=== PATIENT | female | born 1975 | race Hispanic/Latino ===

== ENCOUNTER 2023-07-20 00:27 | Emergency (ER) | payer OTHER, SELFPAY ==
[~2023-07-20] VITALS: Ht 165.1 cm; Wt 80.3 kg
[2023-07-20] MEDS ORDERED: ONDANSETRON 4MG INJ IVP ONE (01:00)
[2023-07-20] MEDS ORDERED: ACETAMINOPHEN 500 MG TABLET PO ONE (01:00)
[2023-07-20 01:37] LABS: BASOPHILS # (AUTO) 0.02 K/uL (0.00-0.20); BASOPHILS % (AUTO) 0.1 % (0.0-5.0); HEMATOCRIT 29.5 % (36-48); IMMATURE GRANULOCYTE ABSOLUTE 0.05 K/uL (0-1); LYMPHOCYTES # (AUTO) 0.5 K/uL (1.0-4.8); LYMPHOCYTES % (AUTO) 3.8 % (21.0-51.0); MEAN CORPUSCULAR HEMOGLOBIN 23.8 pg (27.0-33.0); MEAN CORPUSCULAR HGB CONC 32.2 g/dL (32.0-36.0); MEAN CORPUSCULAR VOLUME 73.8 fL (79-99); MONOCYTES # (AUTO) 0.5 K/uL (0.1-1.0); MONOCYTES % (AUTO) 3.4 % (3.0-13.0); NEUTROPHILS # (AUTO) 12.7 K/uL (1.8-7.7); NEUTROPHILS % (AUTO) 92.3 % (40.0-77.0); PLATELET COUNT (AUTO) 295 K/uL (130-400); RED CELL DISTRIBUTION WIDTH 14.9 % (11.0-15.5); WHITE BLOOD COUNT (AUTO) 13.7 K/uL (4.8-10.8)
[2023-07-20 01:43] LABS: APPEARANCE,URINE CLEAR (CLEAR); BILIRUBIN,URINE NEGATIVE (NEGATIVE); COLOR,URINE COLORLESS (YELLOW); GLUCOSE, URINE (UA) NEGATIVE (NEGATIVE); KETONES,URINE NEGATIVE (NEGATIVE); LEUKOCYTE ESTERASE ,URINE NEGATIVE Leu/uL (NEGATIVE); NITRATE,URINE NEGATIVE (NEGATIVE); OCCULT BLOOD,URINE NEGATIVE (NEGATIVE); PROTEIN,URINE NEGATIVE (NEGATIVE); UROBILINOGEN,URINE 0.2 mg/dL (0.2-1.0)
[2023-07-20 01:45] LABS: CREATININE 0.8 mg/dL (0.5-1.5); POTASSIUM 3.6 mmol/L (3.5-5.1)
[2023-07-20 01:45] LABS: ADD UA MICROSCOPIC NO; HCG,QUALITATIVE URINE NEGATIVE (NEGATIVE)
[2023-07-20 01:51] LABS: SARS-CoV-2, RNA, NAAT NEGATIVE SARS CoV-2 (NEGATIVE)
[2023-07-20 01:52] LABS: RAPID GROUP A STREP positive (NEGATIVE)
[2023-07-20 01:54] LABS: ALBUMIN 3.9 g/dL (3.5-5.0); BILIRUBIN,TOTAL 0.4 mg/dL (0.2-1.0); TOTAL PROTEIN, SERUM 7.7 g/dL (6.0-8.3)
[2023-07-20 01:57] LABS: INFLUENZA TYPE A Negative For Type A (NEGATIVE); INFLUENZA TYPE B Negative For Type B (NEGATIVE)
[2023-07-20] MEDS ORDERED: FAMOTIDINE 20MG VIAL IV ONE (02:00)
[2023-07-20] MEDS ORDERED: 0.9%NACL 1000ML 1,140 ML IV ONE (02:00)
[2023-07-20 02:08] LABS: WBC MORPHOLOGY CONSISTENT W/DIFF
[2023-07-20] MEDS ORDERED: PENI500T2 PO (02:19)
[2023-07-20] MEDS ORDERED: CEFTRIAXONE 2GM VIAL IVPB ONE (02:30)
[2023-07-20 04:38] VITALS: BP 154/86; PULSE 88; RESP 16; O2SAT 100
== END 2023-07-20 04:40 | disposition home or self-care (01) ==
LOC: EDH 00:27
DX: A08.4 Viral intestinal infection, unspecified (principal); J02.0 Streptococcal pharyngitis; Z20.822 Contact with and (suspected) exposure to COVID-19
CPT/HCPCS: 99284; 96365; 96375; 87635; 96366; 80053; 83690; 85025; 87880; 87804 ×2; 81003; 81025; 36415; C9803; J3490; J7030; J0696; J2405

== ENCOUNTER 2024-08-01 19:23 | Emergency (ER) | payer SELFPAY ==
[~2024-08-01] VITALS: Ht 162.6 cm; Wt 76.2 kg
[~2024-08-01 19:23] MED LIST: PENI500T2 PO
[2024-08-01 21:59] VITALS: BP 132/74; PULSE 61; RESP 20; TEMP 97.2; O2SAT 100
== END 2024-08-01 22:04 | disposition home or self-care (01) ==
LOC: EDH 19:23
DX: R10.2 Pelvic and perineal pain (principal); Z79.899 Other long term (current) drug therapy
CPT/HCPCS: 76856

== ENCOUNTER 2024-09-27 16:05 | Emergency (ER) | payer SELFPAY ==
[~2024-09-27] VITALS: Ht 162.6 cm; Wt 74.4 kg
--- NOTE | 2024-09-27 16:27 | EKG ---
[facility] Test Date: 2024-09-27 Test Time: 16:20:32 Pat Name: KRISTI RIDDLE Department: ED Room: Gender: F Sport Intern: [id number] : 1975 Requested By: ARABELLA STOVALL Order Number: [id number] Reading MD: Lluvia Rizo Measurements Intervals [place] Rate: 51 P: 5 DC: 146 QRS: 2 QRSD: 107 T: -7 QT: 457 QTc: 423 Interpretive Statements Sinus rhythm No previous ECG available for comparison Electronically Signed On 09-28-2024 13:33:08 ILLUMINATING ENGINEER by Lluvia Rizo Please click the below link to view image of tracing.
--- NOTE | 2024-09-27 16:27 | ERN ---
General Chief Complaint: Multiple Complaints Stated Complaint: GENERAL BODY WEAKNESS Time Seen by MD: 16:17 History of Present Illness Initial Comments 49-year-old female who presents for headache and hypertension. Patient reports that she has not been taking any blood pressure medicines recently. She has been getting headaches. She has been taking her blood pressure at home and it is elevated. She has been to other facilities and had full workups done including lab work and CT scans. She reports that she wants medicine to start treating her blood pressure but nobody is prescribed any medication. She reports that she does have scheduled follow up with the primary doctor but not for another month or so. No vision changes. No neck stiffness. No focal neurologic deficits. She also reports that she has been seeing sediment in her urine. No other symptoms related to urinary tract Allergies: Coded Allergies: No Known Allergies (Unverified Allergy, Unknown, 07/20/23) Home Meds Active Scripts Amlodipine Besylate (Amlodipine Besylate) 5 Mg Tablet, 5 MG PO DAILY for 30 Days, #30 TAB Prov:ARABELLA STOVALL DO 09/27/24 Penicillin V Potassium (Penicillin V Potassium) 500 Mg Tablet, 1 TAB PO QID for 10 Days, #40 TAB 0 Refills Prov:ISAAC MCKEON Sr., MD 07/20/23 Past Medical History Past Medical History: No Pertinent History Past Surgical History: None Social History Social History: Lives with family ROS Dictation CONSTITUTIONAL: No chills, no fever, no weakness, no diaphoresis, no malaise. HEAD/FACE: No signs of trauma. EENT: No eye pain, no blurred vision, no tearing, no double vision, no ear pa in, no ear discharge, no nose pain, no nasal congestion, no throat pain, no throat swelling, no mouth pain. RESPIRATORY: No cough, no orthopnea, no SOB, no stridor, no wheezing. CARDIOVASCULAR: No chest pain, no edema, no palpitations, no syncope. GASTROINTESTINAL/ABDOMINAL: No abdominal pain, no constipation, no diarrhea, no nausea, no vomiting. GENITOURINARY: No abnormal discharge, no dysuria, no frequent urination, no hematuria. No complaints of pain in the genitals. MUSCULOSKELETAL: No back pain, no gout, no joint pain, no joint swelling, no muscle pain, no muscle stiffness, no neck pain. INTEGUMENTARY: No change in color, no change in hair/nails, no dryness, no lesion, no lumps, no rash. NEUROLOGICAL/PSYCH: Headache HEMATOLOGIC/LYMPHATIC: Not anemic, no history of blood clots, no apparent bleeding, no bruising, glands not swollen. All Systems Negative, Except as Noted. Physical Exam Physical Exam Dictation VITAL SIGNS: Reviewed. GENERAL APPEARANCE: Alert, oriented x3, no acute distress HEAD AND FACE: Non-traumatic. EYES: PERRL, pink conjunctivas, eyelid no trauma, anterior chamber clear. EARS: Pinnas intact and no signs of trauma or erythema. Ear canals clear and no discharge. TMs no erythema. NOSE: No discharge, no bleeding. OROPHARYNX: Mouth normal, teeth no caries, tongue pink. Pharynx clear, no erythema. Tonsils no exudates, no abscesses noted. Mucous membrane moist. NECK: Supple, non-tender, no thyromegaly, no masses, no JVD, no bruits. BREAST: Deferred. CHEST: No tenderness, no crepitus, no paradoxical movement, no retractions. LUNGS: Clear, well-ventilated, symmetric, no rales, no wheezing, no rhonchi, no stridor, good breath sounds bilaterally. HEART: Regular rate, regular rhythm, no murmur, no gallops. VASCULAR: No peripheral edema. ABDOMEN: Soft, positive bowel sounds, nondistended, no guarding, nontender, no rebound, no masses no hepatomegaly, no splenomegaly, no Edwards's sign, no hernias. RECTAL: Deferred. GENITAL: Deferred. NEUROLOGICAL: Normal speech, gross motor function intact, gross sensory function intact. MUSCULOSKELETAL: Neck nontender, full range of motion, back nontender, full range of motion. EXTREMITIES: Nontender, full range of motion. SKIN: Color pink, dry, no turgor, no rash, no lacerations, no abrasions, no contusions. LYMPHATICS: Deferred. Results Laboratory and Microbiology Lab and Micro Result Laboratory Tests Test 09/27/24 16:15 09/27/24 16:35 Urine Color COLORLESS (YELLOW) Urine Appearance CLEAR (CLEAR) Urine pH 6.0 (5.0-8.0) Urine Specific [place] 1.004 (1.001-1.031) Urine Protein NEGATIVE mg/dL (NEGATIVE) Urine Glucose (UA) NEGATIVE mg/dL (NEGATIVE) Urine Ketones 5 mg/dL (NEGATIVE) H Urine Occult Blood NEGATIVE (NEGATIVE) Urine Nitrate NEGATIVE (NEGATIVE) Urine Bilirubin NEGATIVE mg/dL (NEGATIVE) Urine Urobilinogen 0.2 mg/dL (0.2-1.0) Urine Leukocyte Esterase NEGATIVE Delia/uL White Blood Count 6.7 K/uL (4.8-10.8) Red Blood Count 5.23 MIL/uL (4.00-5.50) Hemoglobin 12.9 g/dL (12.0-16.0) Hematocrit 39.9 % (36-48) Mean Corpuscular Volume 76.3 fL (79-99) L Mean Corpuscular Hemoglobin 24.7 pg (27.0-33.0) L Mean Corpuscular Hemoglobin Concent 32.3 g/dL (32.0-36.0) Red Cell Distribution Width 17.1 % (11.0-15.5) H Platelet Count 231 K/uL (130-400) Mean Platelet Volume 10.6 fL (7.5-10.5) H Immature Granulocyte % (Auto) 0.1 % (0-1) Neutrophils (%) (Auto) 53.5 % (40.0-77.0) Lymphocytes (%) (Auto) 36.8 % (21.0-51.0) Monocytes (%) (Auto) 8.4 % (3.0-13.0) Eosinophils (%) (Auto) 0.9 % (0.0-8.0) Basophils (%) (Auto) 0.3 % (0.0-5.0) Neutrophils # (Auto) 3.6 K/uL (1.8-7.7) Lymphocytes # (Auto) 2.5 K/uL (1.0-4.8) Monocytes # (Auto) 0.6 K/uL (0.1-1.0) Eosinophils # (Auto) 0.06 K/uL (0.00-0.70) Basophils # (Auto) 0.02 K/uL (0.00-0.20) Absolute Immature Granulocyte (auto 0.01 K/uL (0-1) Nucleated Red Blood Cells 0.0 % (0.0-0.19) Red Blood Cell Morphology See comments Urine HCG, Qualitative NEGATIVE (NEGATIVE) Sodium Level 142 mmol/L (136-145) Potassium Level 3.9 mmol/L (3.5-5.1) Chloride Level 105 mmol/L (101-111) Carbon Dioxide Level 32 mmol/L (21-32) Blood Urea Nitrogen 12 mg/dL (7-18) Creatinine 0.7 mg/dL (0.5-1.0) Glomerular Filtration Rate Calc 107 mL/min (>90) Random Glucose 98 mg/dL (70-105) Total Calcium 9.2 mg/dL (8.5-10.1) Troponin I High Sensitivity 5 ng/L (4-50) MDM CC: Headache hypertension Historian: Patient Comorbidities: None Limitations by social determinants of health: Uninsured Differential diagnosis: Hypertension, tension headache, migraine, electrolyte abnormality, other. EKG: NSR, rate 51, normal axis, good R progression, intervals are stable no STEMI. Independently interpreted by me. Labs: No leukocytosis no anemia. Chemistry panel normal. Troponin normal. UA normal. Treatment in the ER: Given a dose hydralazine normal blood pressure stabilized. no life threats at this time. We will DC. Prescriptions: Amlodipine ED Course Orders Procedure Category Date Status Time 12 Lead Ekg Tracing- EKG 09/27/24 Resulted Technical 16:14 Urinalysis Profile LAB 09/27/24 Complete 16:14 Cbc With Differential LAB 09/27/24 Complete 16:14 Basic Metabolic Panel LAB 09/27/24 Complete 16:14 Troponin I High LAB 09/27/24 Complete Sensitivity 16:14 ,Urine Test LAB 09/27/24 Complete 16:25 Hydralazine 20mg Inj PHA 09/27/24 Complete (Apresoline 20mg In 16:30 Current Medications Medications (Trade) Dose Ordered Sig/Nicole Route PRN Reason Start Time Stop Time Status Last Admin Dose Admin Hydralazine HCl (APRESOLine 20MG INJ) 10 mg ONCE ONCE IV 09/27/24 16:30 09/27/24 16:31 DC 09/27/24 16:36 Vital Signs Date Time Temp Pulse Resp B/P (MAP) Pulse Ox O2 Delivery O2 Flow Rate FiO2 09/27/24 17:37 97.9 64 16 118/70 100 Room Air* 0 21 09/27/24 16:46 63 20 148/82 100 Room Air* 0 21 09/27/24 16:20 97.9 67 14 195/87 100 Room Air* 0 21 DX & DISP Disposition: Discharge Departure Impression: Primary Impression: Hypertension Condition: Stable Scripts Amlodipine Besylate (Amlodipine Besylate) 5 Mg Tablet 5 MG PO DAILY for 30 Days, #30 TAB Prov: ARABELLA STOVALL DO 09/27/24 Additional Instructions: You have high blood pressure. You received hydralazine, which is a blood pressure lowering medication, here in the emergency department. Your lab work (CBC, BMP, troponin, urinalysis) is normal. I have prescribed amlodipine, which is a blood pressure medication. Take this once per day. I recommend that you follow up with a primary doctor. Please return to the emergency department as needed. Referrals: EKTA ALFONSO (PCP) ARABELLA STOVALL DO Sep 27, 2024 16:27
[2024-09-27] MEDS: hydrALAZine 20MG/ML VIAL IV ONE (16:36)
[2024-09-27 16:38] LABS: APPEARANCE,URINE CLEAR (CLEAR); BILIRUBIN,URINE NEGATIVE (NEGATIVE); COLOR,URINE COLORLESS (YELLOW); GLUCOSE, URINE (UA) NEGATIVE (NEGATIVE); KETONES,URINE 5 mg/dL (NEGATIVE); LEUKOCYTE ESTERASE ,URINE NEGATIVE Leu/uL (NEGATIVE); NITRATE,URINE NEGATIVE (NEGATIVE); OCCULT BLOOD,URINE NEGATIVE (NEGATIVE); PROTEIN,URINE NEGATIVE (NEGATIVE); UROBILINOGEN,URINE 0.2 mg/dL (0.2-1.0)
[2024-09-27 16:41] LABS: BASOPHILS # (AUTO) 0.02 K/uL (0.00-0.20); BASOPHILS % (AUTO) 0.3 % (0.0-5.0); EOSINOPHILS # (AUTO) 0.06 K/uL (0.00-0.70); EOSINOPHILS % (AUTO) 0.9 % (0.0-8.0); HEMATOCRIT 39.9 % (36-48); IMMATURE GRANULOCYTE ABSOLUTE 0.01 K/uL (0-1); LYMPHOCYTES # (AUTO) 2.5 K/uL (1.0-4.8); LYMPHOCYTES % (AUTO) 36.8 % (21.0-51.0); MEAN CORPUSCULAR HEMOGLOBIN 24.7 pg (27.0-33.0); MEAN CORPUSCULAR HGB CONC 32.3 g/dL (32.0-36.0); MEAN CORPUSCULAR VOLUME 76.3 fL (79-99); MONOCYTES # (AUTO) 0.6 K/uL (0.1-1.0); MONOCYTES % (AUTO) 8.4 % (3.0-13.0); NEUTROPHILS # (AUTO) 3.6 K/uL (1.8-7.7); NEUTROPHILS % (AUTO) 53.5 % (40.0-77.0); PLATELET COUNT (AUTO) 231 K/uL (130-400); RED BLOOD CELL COUNT(AUTO) 5.23 MIL/uL (4.00-5.50); RED CELL DISTRIBUTION WIDTH 17.1 % (11.0-15.5); WHITE BLOOD COUNT (AUTO) 6.7 K/uL (4.8-10.8)
[2024-09-27 16:41] LABS: ADD UA MICROSCOPIC NO
[2024-09-27 16:48] LABS: CREATININE 0.7 mg/dL (0.5-1.0); POTASSIUM 3.9 mmol/L (3.5-5.1)
[2024-09-27] MEDS ORDERED: AMLO-257 PO (17:32)
[2024-09-27 17:37] VITALS: BP 118/70; PULSE 64; RESP 16; TEMP 97.9; O2SAT 100
== END 2024-09-27 17:45 | disposition home or self-care (01) ==
LOC: EDH 16:05
DX: I10 Essential (primary) hypertension (principal); Z79.899 Other long term (current) drug therapy
CPT/HCPCS: 99284; 96374; 84484; 80048; 85025; 81003; 81025; 36415; 93005; J0360

== ENCOUNTER 2024-09-28 00:25 | Emergency (ER) | payer SELFPAY ==
[~2024-09-28] VITALS: Ht 162.6 cm; Wt 74.4 kg
[~2024-09-28 00:25] MED LIST changes: +AMLO-257 PO
[2024-09-28 00:41] LABS: BASOPHILS # (AUTO) 0.02 K/uL (0.00-0.20); BASOPHILS % (AUTO) 0.2 % (0.0-5.0); EOSINOPHILS # (AUTO) 0.02 K/uL (0.00-0.70); EOSINOPHILS % (AUTO) 0.2 % (0.0-8.0); HEMATOCRIT 39.2 % (36-48); IMMATURE GRANULOCYTE ABSOLUTE 0.02 K/uL (0-1); LYMPHOCYTES # (AUTO) 2.4 K/uL (1.0-4.8); LYMPHOCYTES % (AUTO) 26.2 % (21.0-51.0); MEAN CORPUSCULAR HEMOGLOBIN 24.8 pg (27.0-33.0); MEAN CORPUSCULAR HGB CONC 32.9 g/dL (32.0-36.0); MEAN CORPUSCULAR VOLUME 75.2 fL (79-99); MONOCYTES # (AUTO) 0.6 K/uL (0.1-1.0); NEUTROPHILS % (AUTO) 66.2 % (40.0-77.0); PLATELET COUNT (AUTO) 237 K/uL (130-400); RED BLOOD CELL COUNT(AUTO) 5.21 MIL/uL (4.00-5.50); RED CELL DISTRIBUTION WIDTH 17.2 % (11.0-15.5)
[2024-09-28] MEDS: ondanSETRON 4MG INJ IVP ONE (00:43)
[2024-09-28] MEDS: FAMOTIDINE 20MG VIAL IV ONE (00:43)
[2024-09-28 00:55] LABS: CREATININE 0.7 mg/dL (0.5-1.0); POTASSIUM 3.9 mmol/L (3.5-5.1)
[2024-09-28 00:59] LABS: ALBUMIN 3.8 g/dL (3.5-5.0); BILIRUBIN,DIRECT 0.1 mg/dL (0.0-0.3); BILIRUBIN,TOTAL 0.4 mg/dL (0.2-1.0); TOTAL PROTEIN, SERUM 7.6 g/dL (6.0-8.3)
--- NOTE | 2024-09-28 02:42 | ERN ---
General Chief Complaint: Multiple Complaints Stated Complaint: N/V, DIZZINESS, H/A, CP ONSET 1999 Time Seen by MD: 00:27 Time Seen by Midlevel: 00:27 Source: patient, EMS History of Present Illness Initial Comments Patient is a 49-year-old female being brought in by EMS for evaluation multiple complaints. On arrival patient is reporting nausea, dizziness, severe headache, and chest pain. She was seen in our emergency department 6 hours ago and was discharged home with a diagnosis of hypertension. No other symptoms reported at this time. Allergies: Coded Allergies: No Known Allergies (Unverified Allergy, Unknown, 07/20/23) Home Meds Active Scripts Amlodipine Besylate (Amlodipine Besylate) 5 Mg Tablet, 5 MG PO DAILY for 30 Days, #30 TAB Prov:ARABELLA STOVALL DO 09/27/24 Penicillin V Potassium (Penicillin V Potassium) 500 Mg Tablet, 1 TAB PO QID for 10 Days, #40 TAB 0 Refills Prov:ISAAC MCKEON Sr., MD 07/20/23 Past Medical History Past Medical History: No Pertinent History Past Surgical History: BTL Social History Social History: Lives with family ROS Dictation CONSTITUTIONAL: Negative except for HPI HEAD/FACE: Negative except for HPI EENT: Negative except for HPI RESPIRATORY: Negative except for HPI GASTROINTESTINAL/ABDOMINAL: Negative except for HPI GENITOURINARY: Negative except for HPI MUSCULOSKELETAL: Negative except for HPI INTEGUMENTARY: Negative except for HPI NEUROLOGICAL/PSYCH: Negative except for HPI HEMATOLOGIC/LYMPHATIC: Negative except for HPI All Systems Negative, Except as noted above. 13 point review of systems assessed and all negative except for above. Physical Exam Physical Exam Dictation Vital Signs reviewed General Appearance: Alert, oriented x 3, no acute distress, well developed, nourished. Head and Face: non-traumatic. Eyes: PERRL, pink conjunctivas, eyelid no trauma, anterior chamber with arcus senilis. Ears: Pinnas intact and no signs of trauma or erythema ear canals clear and no discharge TM no erythema Nose: No discharge, no bleeding. Oropharynx: Mouth normal, tongue pink, pharynx clear,no erythema, tonsils no exudates, no abscesses noted, mucous membrane moist Neck: Supple, non-tender, no thyromegaly, no masses, no JVD, no bruits Breast:Deferred Chest:No tenderness, no crepitus, no paradoxical movement, no retractions Lungs:Clear, well-ventilated, symmetric, no rales, no wheezing, no rhonchi, no stridor, good breath sounds bilaterally Heart: Regular rate, regular rhythm, no murmur, no gallops Vascular: no peripheral edema, Abdomen: Soft, positive bowel sounds, nondistended, no guarding, nontender, no rebound, no masses no hepatomegaly, no splenomegaly, no Edwards's sign, no hernias. Rectal: Deferred Genital: Deferred Neurological: Normal speech, motor function intact, sensory function intact Musculoskeletal: Neck nontender, full range of motion, back nontender, full range of motion, Extremities: nontender, full range of motion Skin: Color pink, dry, no turgor, no rash, no lacerations, no abrasions, no contusions. Lymphatic: Deferred Results Laboratory and Microbiology Lab and Micro Result Laboratory Tests Test 09/28/24 00:32 White Blood Count 9.0 K/uL (4.8-10.8) # Red Blood Count 5.21 MIL/uL (4.00-5.50) Hemoglobin 12.9 g/dL (12.0-16.0) Hematocrit 39.2 % (36-48) Mean Corpuscular Volume 75.2 fL (79-99) L Mean Corpuscular Hemoglobin 24.8 pg (27.0-33.0) L Mean Corpuscular Hemoglobin Concent 32.9 g/dL (32.0-36.0) Red Cell Distribution Width 17.2 % (11.0-15.5) H Platelet Count 237 K/uL (130-400) Mean Platelet Volume 10.1 fL (7.5-10.5) Immature Granulocyte % (Auto) 0.2 % (0-1) Neutrophils (%) (Auto) 66.2 % (40.0-77.0) Lymphocytes (%) (Auto) 26.2 % (21.0-51.0) Monocytes (%) (Auto) 7.0 % (3.0-13.0) Eosinophils (%) (Auto) 0.2 % (0.0-8.0) Basophils (%) (Auto) 0.2 % (0.0-5.0) Neutrophils # (Auto) 6.0 K/uL (1.8-7.7) Lymphocytes # (Auto) 2.4 K/uL (1.0-4.8) Monocytes # (Auto) 0.6 K/uL (0.1-1.0) Eosinophils # (Auto) 0.02 K/uL (0.00-0.70) Basophils # (Auto) 0.02 K/uL (0.00-0.20) Absolute Immature Granulocyte (auto 0.02 K/uL (0-1) Nucleated Red Blood Cells 0.0 % (0.0-0.19) Sodium Level 142 mmol/L (136-145) Potassium Level 3.9 mmol/L (3.5-5.1) Chloride Level 105 mmol/L (101-111) Carbon Dioxide Level 28 mmol/L (21-32) Blood Urea Nitrogen 13 mg/dL (7-18) Creatinine 0.7 mg/dL (0.5-1.0) Glomerular Filtration Rate Calc 107 mL/min (>90) Random Glucose 118 mg/dL (70-105) H Total Calcium 9.5 mg/dL (8.5-10.1) Total Bilirubin 0.4 mg/dL (0.2-1.0) Direct Bilirubin 0.1 mg/dL (0.0-0.3) Aspartate Amino Transf (AST/SGOT) 13 U/L (10-37) Alanine Aminotransferase (ALT/SGPT) 18 U/L (12-78) Alkaline Phosphatase 110 U/L (50-136) Total Creatine Kinase 57 U/L (21-232) Troponin I High Sensitivity < 4 ng/L (4-50) L Total Protein 7.6 g/dL (6.0-8.3) Albumin 3.8 g/dL (3.5-5.0) Lipase 52 U/L (16-77) Labs Reviewed?: Yes MDM MDM: Patient is a 49-year-old female being brought in by EMS for evaluation multiple complaints. On arrival patient is reporting nausea, dizziness, severe headache, and chest pain. She was seen in our emergency department 6 hours ago and was discharged home with a diagnosis of hypertension. No other symptoms reported at this time. On physical examination patient is in no acute distress. She is reporting some chest pain and a severe headache. Her initial vital signs are stable. Her neurological examination is unremarkable. Patient just had a CBC and a basic metabolic done approximately 6 hours ago. Given that she is still having nausea and reports having episodes of vomit before arriving a hepatic profile and lipase was ordered to rule out pancreatitis or biliary obstruction. All of patient's blood work is still your work was. Her cardiac enzymes are negative. Labs were discussed with the patient however she is still reporting a severe headache. A CT scan of the head was ordered which reveals no acute intracranial abnormality. Patient will be given pain control and will be discharged home with supportive management. Differential diagnosis: Malingering, ACS, electrolyte abnormality, pancreatitis There are no social concerns with this patient. Prescription drug management Prescriptions will include: None Medical management and examination interpretation discussions were had by me with other qualified healthcare professionals as indicated for the patient's care. ED Course Orders Procedure Category Date Status Time Cbc With Differential LAB 09/28/24 Complete 00:29 Basic Metabolic Panel LAB 09/28/24 Complete 00:29 Hepatic Function Panel LAB 09/28/24 Complete 00:29 Lipase LAB 09/28/24 Complete 00:29 Troponin I High LAB 09/28/24 Complete Sensitivity 00:29 Creatine Kinase, Total LAB 09/28/24 Complete 00:29 Ondansetron 4mg Inj PHA 09/28/24 Complete (Zofran 4mg Inj) 01:00 Famotidine 20mg Vial PHA 09/28/24 Complete (Pepcid 20mg Vial) 01:00 12 Lead Ekg Tracing- EKG 09/28/24 Logged Technical 00:36 Ct Head/Brain W/O CT 09/28/24 Taken Contrast 01:22 Ketorolac PHA 09/28/24 Logged Tromethamine 15mg/Ml 03:00 Current Medications Medications (Trade) Dose Ordered Sig/Nicole Route PRN Reason Start Time Stop Time Status Last Admin Dose Admin Famotidine (Pepcid 20mg Vial) 20 mg ONCE ONCE IV 09/28/24 01:00 09/28/24 01:01 DC 09/28/24 00:43 Ketorolac Tromethamine (toRADol) 15 mg ONCE ONCE IV 09/28/24 03:00 09/28/24 03:01 UNV Ondansetron HCl (zoFRAN 4MG INJ) 4 mg ONCE ONCE IVP 09/28/24 01:00 09/28/24 01:01 DC 09/28/24 00:43 Vital Signs Date Time Temp Pulse Resp B/P (MAP) Pulse Ox O2 Delivery O2 Flow Rate FiO2 09/28/24 01:47 60 14 135/81 97 Room Air* 0 21 09/28/24 00:27 98.4 62 6 155/99 98 Room Air 0 09/28/24 00:26 98.4 62 6 155/99 98 Room Air* 0 21 DX & DISP Disposition: Discharge Departure Impression: Primary Impression: Headache Additional Impression: Nausea Condition: Stable Additional Instructions: Your blood work today was unremarkable. Your blood pressure has been stable during her entire ER visit. Your CT scan of the head does not show any acute intracranial abnormality. You will need to follow up with your primary care provider in 2-3 days for repeat evaluation. Return to the ER for any new or worsening symptoms Referrals: EKTA ALFONSOP (PCP) Time of Disposition: 02:41 I have reviewed the case, and I agree with, Diagnosis and Plan I performed the substantive portion of the visit. I have reviewed and personally made and approve the management plan that is documented in the note by myself or the RAIZA. I acknowledge for responsibility for the patient's management plan. SHAHAB JOHANSEN Sep 28, 2024 02:42
[2024-09-28] MEDS: ketOROlac 15MG/ML VIAL (15MG/ML) IV ONE (02:55)
[2024-09-28 02:58] VITALS: BP 132/78; PULSE 73; RESP 18; TEMP 98.5; O2SAT 99
--- NOTE | 2024-09-28 06:58 | EKG ---
[facility] Test Date: 2024-09-28 Test Time: 00:31:21 Pat Name: KIRSTI RIDDLE Department: [facility] Room: Gender: F Indexer: [id number] : 1975 Requested By: SHAHAB JOHANSEN Order Number: [id number] Reading MD: Lluvia Rizo Measurements Intervals [place] Rate: 57 P: 38 DC: 149 QRS: 17 QRSD: 111 T: 1 QT: 444 QTc: 435 Interpretive Statements Sinus rhythm Compared to ECG 09/27/2024 16:20:32 No significant changes Electronically Signed On 09-28-2024 13:33:12 BASKETBALL ASSEMBLER by Lluvia Rizo Please click the below link to view image of tracing.
--- NOTE | 2024-09-28 08:45 | HMCIMG ---
Exam: NONCONTRAST CT BRAIN REASON: severe headache/htn. COMPARISON: None. TECHNIQUE: Images are obtained from vertex to the skull base. The exam was performed without IV contrast. FINDINGS: There is normal appearing brain parenchyma. There are no focal mass lesions. There is is no evidence of intracranial hemorrhage or acute stroke. Ventricles and sulci appear normal. Posterior fossa and brainstem structures are unremarkable. Paranasal sinuses and remaining extracranial soft tissues appear normal as well. IMPRESSION: 1. Normal noncontrast CT brain. CT was performed with one or more following dose reduction techniques: automated exposure control, adjustment of the mA and kv according to patient's size, or use of a iterative reconstruction technique.
== END 2024-09-28 03:04 | disposition home or self-care (01) ==
LOC: EDH 00:25
DX: R51.9 Headache, unspecified (principal); R11.0 Nausea; I10 Essential (primary) hypertension; Z79.899 Other long term (current) drug therapy; Z98.51 Tubal ligation status
CPT/HCPCS: 99285; 96374; 70450; 96375; 82550; 80076; 84484; 80048; 83690; 85025; 36415; 93005; J3490; J2405; J1885

== ENCOUNTER 2024-09-30 07:08 | Emergency (ER) | payer SELFPAY ==
[~2024-09-30] VITALS: Ht 167.6 cm; Wt 86.2 kg
[2024-09-30] MEDS: acetaMINOPHEN 500 MG TABLET PO ONE (07:36)
[2024-09-30 08:36] LABS: APPEARANCE,URINE CLEAR (CLEAR); BILIRUBIN,URINE NEGATIVE (NEGATIVE); COLOR,URINE LIGHT-YELLOW (YELLOW); GLUCOSE, URINE (UA) NEGATIVE (NEGATIVE); KETONES,URINE 10 mg/dL (NEGATIVE); LEUKOCYTE ESTERASE ,URINE NEGATIVE Leu/uL (NEGATIVE); NITRATE,URINE NEGATIVE (NEGATIVE); OCCULT BLOOD,URINE NEGATIVE (NEGATIVE); PROTEIN,URINE NEGATIVE (NEGATIVE); UROBILINOGEN,URINE 0.2 mg/dL (0.2-1.0)
--- NOTE | 2024-09-30 08:44 | HMCIMG ---
Exam Type: US PELVIC NON-OB LIMITED Clinical Information: vaginal pain, cervical pain, ruleout foreign body Comparison: None Findings: The uterus is anteverted and measures 8.9 x 4.7 x 5.3 cm. Posterior subserosal hypoechoic fibroid seen measuring 2.7 cm. Endometrial lining normal in thickness at 5 mm. No intrauterine or ectopic seen. Right ovary normal in size and echogenicity and vascularity. Left ovary obscured. Vascular Doppler flow exam and spectral analysis of waveforms analysis is unremarkable bilaterally. There is preserved vascularity to both ovaries on Doppler evaluation. Specifically, there is no evidence of ovarian torsion. No free fluid is noted throughout the cul-de-sac. There are no adnexal abnormalities. No other significant abnormalities are seen. No fluid collections or masses or free fluid are identified in the pelvis. Impression: Uterine fibroid. Nonvisualization of the left ovary.
[2024-09-30] MEDS ORDERED: CEPH500B PO (08:59)
--- NOTE | 2024-09-30 08:59 | ERN ---
General Chief Complaint: Abdominal Pain Stated Complaint: ABDOMINAL PAIN Time Seen by MD: 07:11 Source: patient History of Present Illness Initial Comments Patient is a 49-year-old female coming in to be evaluated for vaginal discomfort and states she might have a tampon inserted. Patient states he has been to several ERs they have done several pelvic exam is but have never found a foreign body that she believes it is still there since July. No fever no chills no nausea no vomiting. Patient also states that she is pending a gynecological visit tomorrow. Allergies: Coded Allergies: No Known Allergies (Unverified Allergy, Unknown, 07/20/23) Home Meds Active Scripts Amlodipine Besylate (Amlodipine Besylate) 5 Mg Tablet, 5 MG PO DAILY for 30 Days, #30 TAB Prov:ARABELAL STOVALL DO 09/27/24 Penicillin V Potassium (Penicillin V Potassium) 500 Mg Tablet, 1 TAB PO QID for 10 Days, #40 TAB 0 Refills Prov:ISAAC MCKEON Sr., MD 07/20/23 Past Medical History Past Medical History: Hypertension Past Surgical History: BTL Social History Social History: Lives with family ROS Dictation CONSTITUTIONAL: No chills, no fever, no weakness, no diaphoresis, no malaise. HEAD/FACE: No signs of trauma. EENT: No eye pain, no blurred vision, no tearing, no double vision, no ear pain, no ear discharge, no nose pain, no nasal congestion, no throat pain, no throat swelling, no mouth pain. RESPIRATORY: No cough, no orthopnea, no SOB, no stridor, no wheezing. CARDIOVASCULAR: No chest pain, no edema, no palpitations, no syncope. GASTROINTESTINAL/ABDOMINAL: No abdominal pain, no constipation, no diarrhea, no nausea, no vomiting. GENITOURINARY: No abnormal discharge, dysuria, no frequent urination, no hematuria. No complaints of pain in the genitals. MUSCULOSKELETAL: No back pain, no gout, no joint pain, no joint swelling, no muscle pain, no muscle stiffness, no neck pain. INTEGUMENTARY: No change in color, no change in hair/nails, no dryness, no lesion, no lumps, no rash. NEUROLOGICAL/PSYCH: No anxiety, not depressed, no emotional problem, no headache, no numbness, no pre-existing deficit, no history of seizures, no tremors, no weakness. HEMATOLOGIC/LYMPHATIC: Not anemic, no history of blood clots, no apparent ble eding, no bruising, glands not swollen. All Systems Negative, Except as Noted. Physical Exam Physical Exam Dictation VITAL SIGNS: Reviewed. GENERAL APPEARANCE: Alert, oriented x3, no acute distress, obese. HEAD AND FACE: Non-traumatic. EYES: PERRL, pink conjunctivas, eyelid no trauma, anterior chamber clear. EARS: Pinnas intact and no signs of trauma or erythema. Ear canals clear and no discharge. TMs no erythema. NOSE: No discharge, no bleeding. OROPHARYNX: Mouth normal, teeth no caries, tongue pink. Pharynx clear, no erythema. Tonsils no exudates, no abscesses noted. Mucous membrane moist. NECK: Supple, non-tender, no thyromegaly, no masses, no JVD, no bruits. BREAST: Deferred. CHEST: No tenderness, no crepitus, no paradoxical movement, no retractions. LUNGS: Clear, well-ventilated, symmetric, no rales, no wheezing, no rhonchi, no stridor, good breath sounds bilaterally. HEART: Regular rate, regular rhythm, no murmur, no gallops. VASCULAR: No peripheral edema. ABDOMEN: Soft, positive bowel sounds, nondistended, no guarding, nontender, no rebound, no masses no hepatomegaly, no splenomegaly, no Edwards's sign, no hernias. RECTAL: Deferred. GENITAL: Chaperoned by nurse Mercedez, speculum exam and bimanual normal mild erythema around cervical os otherwise unremarkable. NEUROLOGICAL: Normal speech, gross motor function intact, gross sensory function intact. MUSCULOSKELETAL: Neck nontender, full range of motion, back nontender, full range of motion. EXTREMITIES: Nontender, full range of motion. SKIN: Color pink, dry, no turgor, no rash, no lacerations, no abrasions, no contusions. LYMPHATICS: Deferred. Results Laboratory and Microbiology Lab and Micro Result Laboratory Tests Test 09/30/24 07:30 Urine Color LIGHT-YELLOW (YELLOW) Urine Appearance CLEAR (CLEAR) Urine pH 6.0 (5.0-8.0) Urine Specific [place] 1.024 (1.001-1.031) Urine Protein NEGATIVE mg/dL (NEGATIVE) Urine Glucose (UA) NEGATIVE mg/dL (NEGATIVE) Urine Ketones 10 mg/dL (NEGATIVE) H Urine Occult Blood NEGATIVE (NEGATIVE) Urine Nitrate NEGATIVE (NEGATIVE) Urine Bilirubin NEGATIVE mg/dL (NEGATIVE) Urine Urobilinogen 0.2 mg/dL (0.2-1.0) Urine Leukocyte Esterase NEGATIVE Delia/uL Labs Reviewed?: Yes EKG/XRAY/US/CT/MRI Ultrasound Comment [address] [place] [address] IMAGING REPORT Signed PATIENT: KRISTI RIDDLE MR#: [id number] : 1975 SEX: F AGE: 49 LOCATION: [facility] ORDER 4 STATUS: [facility] REPORT#: [id number] SERVICE 3 REASON: vaginal pain, cervical pain, ruleout foreign body ORDERING PHYSICIAN: ALYSA SCHREIBER MD PROCEDURE: PELVLTD - US PELVIC NON-OB LIMITED Exam Type: US PELVIC NON-OB LIMITED Clinical Information: vaginal pain, cervical pain, ruleout foreign body Comparison: None Findings: The uterus is anteverted and measures 8.9 x 4.7 x 5.3 cm. Posterior subserosal hypoechoic fibroid seen measuring 2.7 cm. Endometrial lining normal in thickness at 5 mm. No intrauterine or ectopic seen. Right ovary normal in size and echogenicity and vascularity. Left ovary obscured. Vascular Doppler flow exam and spectral analysis of waveforms analysis is unremarkable bilaterally. There is preserved vascularity to both ovaries on Doppler evaluation. Specifically, there is no evidence of ovarian torsion. No free fluid is noted throughout the cul-de-sac. There are no adnexal abnormalities. No other significant abnormalities are seen. No fluid collections or masses or free fluid are identified in the pelvis. Impression: Uterine fibroid. Nonvisualization of the left ovary. DICTATED BY: BLAINE DELGADO MD DATE: 09/30/24840 ELECTRONICALLY SIGNED BY: BLAINE DELGADO MD DATE: 09/30/24843 [facility] MDM: Differential diagnosis: Vaginal discomfort, dysuria, 49-year-old female coming in to be evaluated for possible forearm body in the vaginal vault. Patient states that she left a tampon on July and has not been able to retrieve it. Patient has been evaluated at several ERs in his pending a gynecological visit tomorrow. Laboratory workup and ultrasound did not to confirm acute findings. Patient will be discharged in stable condition I advised her appropriate follow up with gynecology. ED Course Orders Procedure Category Date Status Time Us Pelvic Non-Ob US 09/30/24 Resulted Limited 07:24 Acetaminophen 500mg PHA 09/30/24 Complete Tab (Tylenol 500mg T 07:30 Urinalysis LAB 09/30/24 In Process W/Microscopic 07:32 Current Medications Medications (Trade) Dose Ordered Sig/Nicole Route PRN Reason Start Time Stop Time Status Last Admin Dose Admin Acetaminophen (TYLenol 500MG TAB) 1,000 mg ONCE ONCE PO 09/30/24 07:30 09/30/24 07:31 DC 09/30/24 07:36 Vital Signs Date Time Temp Pulse Resp B/P (MAP) Pulse Ox O2 Delivery O2 Flow Rate FiO2 09/30/24 07:30 98.4 74 16 117/76 98 Room Air* 0 21 09/30/24 07:09 98.4 67 18 145/95 98 Room Air 0 DX & DISP Disposition: Discharge Departure Impression: Primary Impression: Vaginal pain Additional Impression: Dysuria Condition: Stable Scripts Cephalexin Monohydrate (Keflex) 500 Mg Cap 1 CAP PO BID for 10 Days, #20 CAP 0 Refills Prov: ALYSA SCHREIBER MD 09/30/24 Additional Instructions: FOLLOW-UP WITH PRIMARY CARE PROVIDER IN 1 TO 2 DAYS. TAKE MEDICATIONS DIRECTED HERE IN THE EMERGENCY ROOM. OKAY TO CONTINUE HOME MEDICATIONS UNLESS OTHERWISE DISCUSSED DURING YOUR VISIT IN THE EMERGENCY ROOM TODAY. RETURN TO YOUR NEAREST EMERGENCY ROOM IF SYMPTOMS WORSEN OR IF THERE IS NO IMPROVEMENT. CALL 911 IF YOU NEED IMMEDIATE ASSISTANCE. TAKE TYLENOL [id number] NEEDED AND IF NO CONTRAINDICATIONS ARE PRESENT. INCREASE ORAL HYDRATION. A WOUND CULTURE OR URINE CULTURE WAS ORDERED HERE IN THE EMERGENCY ROOM DEPARTMENT PLEASE FOLLOW-UP WITH PRIMARY CARE PROVIDER AND ADVISE THEM TO GET REPEAT PORTS FROM OUR FACILITY. IF YOU HAD ANY LING WRAP/SPLINTS THAT WERE APPLIED HERE, PLEASE DO NOT REMOVE THEM UNTIL YOU SEE YOUR PRIMARY CARE OR SPECIALTY. Referrals: Referrals: EKTA ALFONSO (PCP) ISMAEL THIBODEAUX MD Time of Disposition: 08:58 ALYSA SCHREIBER MD Sep 30, 2024 08:59
[2024-09-30 09:03] LABS: MUCUS,URINE RARE LPF (None Seen); SQUAMOUS EPITHELIAL CELL,UR FEW /HPF (0-2)
--- NOTE | 2024-09-30 09:21 | NUR ---
PT VERY UPSET WE DIDNT FIND ANYTHING, PT GIVEN A RX FOR ANY PHARMACY. PT BEGAIN RECORDING AND ASKED NOT TO DO SO AND BECAME MORE UPSET.
[2024-09-30 09:23] VITALS: BP 132/78; PULSE 84; RESP 18; TEMP 98.2; O2SAT 98
== END 2024-09-30 09:34 | disposition home or self-care (01) ==
LOC: EDH 07:08
DX: R10.2 Pelvic and perineal pain (principal); R30.0 Dysuria; I10 Essential (primary) hypertension; Z98.51 Tubal ligation status; Z79.899 Other long term (current) drug therapy
CPT/HCPCS: 76857; 81001; 99284